=== PATIENT | male | born 1955 | race Caucasian/White ===

== ENCOUNTER 2017-02-12 07:00 | Emergency (ER) | payer MEDICARE, OTHER ==
[~2017-02-12] VITALS: Ht 167.6 cm; Wt 70.0 kg
[2017-02-12 07:04] VITALS: Ht 167.6 cm; Wt 70.0 kg
[2017-02-12] MEDS ORDERED: KETOROLAC 30 MG INJ IV STA (07:11)
[2017-02-12] MEDS ORDERED: HYDROmorphONE 1 MG/ML SYG IV STA (07:11)
[2017-02-12] MEDS ORDERED: ONDANSETRON 4 MG INJ IV STA (07:11)
[2017-02-12] MEDS ORDERED: SOD CHLORIDE 0.9% 1,000 ML IV STA (07:11)
[2017-02-12 07:53] LABS: BASOPHILS % 0.4 % (0.0-2.0); EOSINOPHILS # 0.1 10^3/ul (0.0-0.5); EOSINOPHILS % 0.6 % (0.0-7.0); HEMATOCRIT 41.2 % (42.0-52.0); HEMOGLOBIN 13.5 g/dl (14.0-18.0); LYMPHOCYTES # 2.2 10^3/ul (0.8-2.9); LYMPHOCYTES % 20.3 % (15.0-51.0); MEAN CORPUSCULAR HEMOGLOBIN 28.6 pg (29.0-33.0); MEAN CORPUSCULAR HGB CONC 32.8 g/dl (32.0-37.0); MEAN CORPUSCULAR VOLUME 87.3 fl (82.0-101.0); MEAN PLATELET VOLUME 10.8 fl (7.4-10.4); MONOCYTE # 0.9 10^3/ul (0.3-0.9); MONOCYTES % 8.3 % (0.0-11.0); NEUTROPHILS % 69.9 % (39.0-77.0); PLATELET COUNT 245 10^3/UL (140-415); RED BLOOD COUNT 4.72 10^6/ul (4.70-6.10); WHITE BLOOD COUNT 11.1 10^3/ul (4.8-10.8)
[2017-02-12 07:54] LABS: ADD UMIC YES; UR ASCORBIC ACID NEGATIVE (NEGATIVE); UR BACTERIA FEW /HPF (NONE SEEN); UR BILIRUBIN (Dip) NEGATIVE (NEGATIVE); UR BLOOD (Dip) 3+ mg/dL (NEGATIVE); UR CLARITY CLEAR (CLEAR); UR COLOR STRAW (YELLOW); UR GLUCOSE (Dip) NEGATIVE (NEGATIVE); UR KETONES (Dip) NEGATIVE (NEGATIVE); UR LEUKOCYTE ESTERASE (Dip) NEGATIVE Leu/ul (NEGATIVE); UR NITRITE (Dip) NEGATIVE (NEGATIVE); UR RBC 5 /HPF (0-5); UR SPECIFIC GRAVITY (Dip) 1.006 (1.003-1.030); UR TOTAL PROTEIN (Dip) NEGATIVE (NEGATIVE); UR UROBILINOGEN (Dip) NEGATIVE (NEGATIVE)
--- NOTE | 2017-02-12 08:06 | RADRPT ---
PROCEDURE: XR Chest. CLINICAL INDICATION: 61-year-old male with cough. TECHNIQUE: Single frontal view of the chest was obtained. COMPARISON: None FINDINGS: The soft tissues are normal. The bony elements are normal. The heart, cardiomediastinal silhouette and hilar structures are normal. The pulmonary vasculature is normal. There is a left-sided aorta. The lungs are clear. The costophrenic angles are normal. IMPRESSION: 1. Normal chest x-ray. 2. No evidence of acute infiltrate. RPTAT:AAJJ Physician Moo Date Time Electronically viewed and signed by Physician Moo on 02/12/2017 08:06 /
[2017-02-12 08:12] LABS: ALBUMIN 4.6 g/dl (3.3-4.9); ALBUMIN/GLOBULIN RATIO 1.48; BILIRUBIN,INDIRECT 0.7 mg/dl (0-1.1); BILIRUBIN,TOTAL 0.7 mg/dl (0.2-1.3); CALCIUM 8.8 mg/dl (8.4-10.2); CREATININE 0.96 mg/dl (0.61-1.24); POTASSIUM 3.9 mmol/L (3.5-5.1); TOTAL PROTEIN 7.7 g/dl (6.1-8.1)
--- NOTE | 2017-02-12 08:51 | RADRPT ---
PROCEDURE: CT KUB (renal stone survey). CLINICAL INDICATION: Dysuria. Flank pain. LLQ pain. TECHNIQUE: CT KUB (Renal Stone Survey) without contrast was performed on a multidetector high-reso lution CT scanner. No IV contrast was administered. Coronal and sagittal reformatted images were o btained from the axial source images. Images were reviewed on a high-resolution PACS workstation. Th e total exam CTDI equals 13.52 mGy and the total exam DLP equals 846.41 mGy-cm. One or more of the following dose reduction techniques were used: - Automated exposure control. - Adjustment of the mA and/or kV according to patient size. - Use of iterative reconstruction technique. COMPARISON: No prior studies are available for comparison. FINDINGS: CT renal stone survey: The kidneys are symmetric in size, position, and morphology. No renal calculi are identified. Mild dilatation of the renal collecting systems is seen bilaterally. No ureteral calculus is symmetrical ly dilated down to the bladder. No obstructing calculus is seen. The bladder, as visualized, is jamarcus edly distended. There is significant elevated pressures within the bladder which are transmitted up the upper renal collecting systems resulting in bilateral hydroureteronephrosis. No bladder calculu s is seen. CT abdomen: The lung bases are remarkable for benign scarring along the periphery of the lung bases bilaterally. The heart size is normal, without pericardial thickening or effusion. There is a small retrocardiac hiatal hernia. The liver is normal in size and mildly fatty infiltrated without focal mass or intra hepatic biliary dilatation. The spleen is normal in size and homogeneous in density. The stomach i s partially collapsed, but is grossly unremarkable. The pancreas as visualized is normal. The gall bladder is surgically absent; the biliary tree is unremarkable and there is no evidence for biliary dilatation. The adrenal glands are symmetric and normal. The aorta is of normal caliber. Aortic v ascular calcifications are present. There is no retroperitoneal lymphadenopathy. The keo hepatis region is clear. The bowel and mesentery, as visualized, are equally unremarkable. CT pelvis: The small bowel loops situated within the pelvis are unremarkable. The pelvic organs are remarkable for significant enlargement of the prostate gland impressing upon the base of the bladder. The pel felipe sidewalls and inguinal regions are clear. The sigmoid colon and rectum are all remarkable for s igmoid diverticulosis. No pelvic mass or adenopathy is seen. No significant free fluid is identifie d. No acute inflammation is seen. The surrounding osseous structures are remarkable for advanced multilevel degenerative enthesopathy of the spine. No osteolytic or osteoblastic lesion is detected. Multilevel discogenic disease is pr esent as well. IMPRESSION: 1. Markedly distended bladder, likely due to chronic bladder outlet obstruction from an enlarged pr ostate gland. Correlate with PSA level. 2. As a result of the chronic bladder outlet obstruction, there is marked distension of the bladder with elevated bladder pressures which are transmitted up the upper renal collecting systems resulti ng in mild and symmetric bilateral hydroureternephrosis. 3. No urolithiasis is seen within the renal collecting systems on either side. 4. Benign chronic senescent changes seen elsewhere throughout the study. RPTAT: HMJB .Jamarcus Dacosta MD, Date Time Electronically viewed and signed by .Jamarcus Dacosta MD, on 02/12/2017 08:50 .B/
[2017-02-12] MEDS ORDERED: TAMS-14 PO (09:00)
[2017-02-12 09:30] VITALS: BP 136/72; PULSE 77; RESP 16
--- NOTE | 2017-02-12 12:29 | ERD ---
ER Documentation Chief Complaint Date/Time DATE: 02/12/17 TIME: 12:26 Chief Complaint LEFT AND RIGHT LOWER QUADRANT ABD PAIN. DIFFICULTY URINATING HPI Patient is a 61-year-old male with prostate issues who presents with kidney pain. He was brought in by ambulance. He said that he had "kidney pain" which started last night. He feels pain on both sides of his abdomen and in his back. He says the pain is 10 out of 10. It is sharp in nature. He felt bloating and distention. He says he has to urinate but cannot. Upon review of old medical records this is the patient's first visit to the ER. His primary doctor is at [facility]. ROS All systems reviewed and are negative except as per history of present illness. Medications Home Meds Active Scripts Tamsulosin Hcl* (Flomax*) 0.4 Mg Cap.er.24h, 0.4 MG PO QPM, #30 CAP Prov:EPIFANIO MAHARAJ MD 02/12/17 Allergies Allergies: Coded Allergies: No Known Allergy (Unverified , 02/12/17) PMhx/Soc Hx Miscellaneous Medical Probl: Yes (enlarged prostate, lumbar pain) Hx Alcohol Use: No Hx Substance Use: No Hx Tobacco Use: No Smoking Status: Never smoker FmHx Family History: diabetes Physical Exam Vitals Vital Signs Date Time Temp Pulse Resp B/P Pulse Ox O2 Delivery O2 Flow Rate FiO2 02/12/17 09:30 77 16 136/72 99 02/12/17 07:04 98.1 97 16 141/95 99 Physical Exam Const: Moderate distress secondary to pain Head: Atraumatic Eyes: Normal Conjunctiva ENT: Normal External Ears, Nose and Mouth. Neck: Full range of motion..~ No meningismus. Resp: Clear to auscultation bilaterally Cardio: Regular rate and rhythm, no murmurs Abd: Distended abdomen with mass palpated over the bladder Skin: No petechiae or rashes Back: No midline or flank tenderness Ext: No cyanosis, or edema Neur: Awake and alert Psych: Normal Mood and Affect Result Diagram: 02/12/17 0731 02/12/17 0731 Results 24 hrs Laboratory Tests Test 02/12/17 07:01 02/12/17 07:31 Urine Color STRAW Urine Clarity CLEAR Urine pH 5.0 Urine Specific [place] 1.006 Urine Ketones NEGATIVEmg/dL Urine Nitrite NEGATIVEmg/dL Urine Bilirubin NEGATIVEmg/dL Urine Urobilinogen NEGATIVEmg/dL Urine Leukocyte Esterase NEGATIVELeu/ul Urine Microscopic RBC 5/HPF Urine Microscopic WBC 1/HPF Urine Bacteria FEW/HPF Urine Hemoglobin 3+mg/dL Urine Glucose NEGATIVEmg/dL Urine Total Protein NEGATIVEmg/dl White Blood Count 11.110^3/ul Red Blood Count 4.7210^6/ul Hemoglobin 13.5g/dl Hematocrit 41.2% Mean Corpuscular Volume 87.3fl Mean Corpuscular Hemoglobin 28.6pg Mean Corpuscular Hemoglobin Concent 32.8g/dl Red Cell Distribution Width 13.0% Platelet Count 43420^3/UL Mean Platelet Volume 10.8fl Neutrophils % 69.9% Lymphocytes % 20.3% Monocytes % 8.3% Eosinophils % 0.6% Basophils % 0.4% Nucleated Red Blood Cells % 0.0/100WBC Neutrophils # (Manual) 7.710^3/ul Lymphocytes # 2.210^3/ul Monocytes # 0.910^3/ul Eosinophils # 0.110^3/ul Basophils # 0.010^3/ul Nucleated Red Blood Cells # 0.010^3/ul Sodium Level 144mmol/L Potassium Level 3.9mmol/L Chloride Level 108mmol/L Carbon Dioxide Level 22mmol/L Anion Gap 18 Blood Urea Nitrogen 17mg/dl Creatinine 0.96mg/dl Glucose Level 132mg/dl Calcium Level 8.8mg/dl Total Bilirubin 0.7mg/dl Direct Bilirubin 0.00mg/dl Indirect Bilirubin 0.7mg/dl Aspartate Amino Transf (AST/SGOT) 174IU/L Alanine Aminotransferase (ALT/SGPT) 103IU/L Alkaline Phosphatase 79IU/L Total Protein 7.7g/dl Albumin 4.6g/dl Globulin 3.10g/dl Albumin/Globulin Ratio 1.48 Lipase 99U/L Ethyl Alcohol Level 87.0mg/dl Current Medications Medications (Trade) Dose Ordered Sig/Jany Route PRN Reason Start Time Stop Time Status Last Admin Dose Admin Sodium Chloride (NS) 1,000 ml @ 1,000 mls/hr Q1H STAT IV 02/12/17 07:11 02/12/17 08:10 DC 02/12/17 07:28 Hydromorphone HCl (Dilaudid) 1 mg ONCE STAT IV 02/12/17 07:11 02/12/17 07:12 DC Ondansetron HCl (Zofran Inj) 4 mg ONCE STAT IV 02/12/17 07:11 02/12/17 07:12 DC 02/12/17 07:28 Ketorolac Tromethamine (Toradol) 30 mg ONCE STAT IV 02/12/17 07:11 02/12/17 07:12 DC 02/12/17 07:28 Procedures/MDM Smoking Cessation Therapy: Pt. was lectured for greater than 3 minutes on the health risks of continued smoking and the benefits of cessation. CT shows distended bladder with enlarged prostate per radiology. Patient is a 61-year-old male who presents with abdominal pain. He has significant distention of his bladder and a Crocker catheter was placed and he feels much better. The patient has a slightly elevated white blood cell count and a slightly low hemoglobin showing anemia but does not need transfusion and I doubt infection. At this point I believe outpatient management is appropriate. The patient was placed on a leg bag but will need to follow-up with his primary doctor at [facility] within 24-48 hours. He can return for any worsening symptoms. At this point I doubt appendicitis, cholecystitis, pancreatitis, or bowel obstruction. Departure Diagnosis: Primary Impression: Urinary retention Additional Impression: Abdominal pain Abdominal location: generalized Qualified Code: R10.84 - Generalized abdominal pain Condition: Fair Patient Instructions: Abdominal Pain, Urinary Retention, Male Referrals: Your doctor at [place] Additional Instructions: Llame al doctor MAANA y toribio marciano CHRIS PARA DENTRO DE 1-2 LYNCH.Dgale a la secretaria que nosotros le instruimos hacer esta chris.Avise o llame si medina condicin se empeora antes de la chris. Regresa aqui si peor o no mejor. EPIFANIO MAHARAJ MD Feb 12, 2017 12:29
== END 2017-02-12 09:35 | disposition home or self-care (01) ==
LOC: E/R 07:00
DX: R33.9 Retention of urine, unspecified (principal); R10.84 Generalized abdominal pain
CPT/HCPCS: 36415; 71010; 74176; 80053; 80306; 81001; 83690; 85025; 96374; 96375; 99285; J1885; J2405; J7030; J1170